=== PATIENT | female | born 1975 | race Hispanic/Latino ===

== ENCOUNTER → 2018-04-22 19:01 | Outpatient (CLI) | payer OTHER, SELFPAY ==
--- NOTE | 2018-04-22 19:13 | DI.MRI.S_ITS ---
PROCEDURE: MR LUMBAR SPINE WO CON INDICATIONS: LOW BACK PAIN TECHNIQUE: Noncontrast sagittal T1 spin echo and T2 fast echo, sagittal STIR, axial T1 and T2 fast spin echo through the lumbar spine. In cases with scoliosis, additional coronal T2 fast spin echo may be performed. COMPARISON: None. FINDINGS: Image quality: Excellent. Alignment and Curvature: There is normal bony alignment. Bone Marrow: Marrow is of normal overall signal. No acute vertebral body compression fractures. Spinal Cord: Conus medullaris terminates at the L1 level. Visualized cord demonstrates normal signal and size. Paraspinous Soft Tissues: No paravertebral masses. T12-L1: Moderate loss of disc height and disc desiccation. There is diffuse disc bulge and posterior central disc protrusion. The central canal is mildly narrowed. No foraminal stenosis. L1-L2: Mild loss of disc height and disc desiccation. There is mild posterior disc bulge. Mild bilateral facet arthropathy. The central canal is patent. No foraminal stenosis. L2-L3: Normal appearance. L3-L4: Minimal loss of disc height and mild disc desiccation. There is posterior disc bulge and disc osteophyte complex. Posterior left paramedian hyperintense annular tear. Mild bilateral facet arthropathy. The central canal is minimally narrowed. No significant foraminal stenosis. L4-L5: Preserved disc height and mild disc desiccation. There is posterior disc bulge and posterior central annular tear. Mild bilateral facet arthropathy. The central canal is minimally narrowed. No significant foraminal stenosis. L5-S1: Preserved disc height and moderate disc desiccation. There is a large posterior disc bulge and posterior central annular tear. Mild bilateral facet arthropathy. The central canal is minimally narrowed. No significant foraminal stenosis. IMPRESSION: 1. Multilevel degenerative disc disease and facet arthropathy as described. 2. Mild central canal stenosis at T12-L1. 3. No foraminal stenosis. Dictated by: Jeanne Romero M.D. on 04/23/2018 at 9:30 Approved by: Jeanne Romero M.D. on 04/23/2018 at 9:39
== END ==
DX: M51.36 Other intervertebral disc degeneration, lumbar region (principal); M51.37 Other intervertebral disc degeneration, lumbosacral region; M48.05 Spinal stenosis, thoracolumbar region; M54.5 Low back pain
CPT/HCPCS: 72148

== ENCOUNTER → 2018-11-11 07:51 | Outpatient (CLI) | payer OTHER, SELFPAY | PROVIDERS: Visit Provider Psychiatry & Neurology Neurology | DX: R20.2 Paresthesia of skin (principal); R32 Unspecified urinary incontinence; Z53.9 Procedure and treatment not carried out, unspecified reason ==

== ENCOUNTER → 2018-11-16 07:42 | Outpatient (CLI) | payer OTHER, SELFPAY ==
--- NOTE | 2018-11-16 | DI.MRI.S_ITS ---
PROCEDURE: MR THORACIC SPINE WO CON INDICATIONS: Paresthesia of skin TECHNIQUE: Noncontrast sagittal T1 spine echo and T2 fast spin echo, sagittal STIR, axial T1 and T2 fast spin echo through the thoracic spine. COMPARISON: None. FINDINGS: Image quality: Excellent. Alignment and Curvature: There is normal bony alignment. Bone Marrow: Marrow is of normal overall signal. No acute vertebral body compression fractures. Spinal Cord: Visualized spinal cord is normal in size and signal. Paraspinous Soft Tissues: No paravertebral masses. Miscellaneous: Mild multilevel degenerative changes are noted. Large right central T10-T11 disc protrusion is noted. This protrusion abuts and flattens the anterior right aspect of the thoracic spinal cord. Mild to moderate narrowing of the central canal secondary to T10-T11 disc protrusion. Small central T5-T6 and T6-T7 disc protrusions are noted which do not cause significant central canal narrowing or neural impingement. No neural foraminal narrowing. IMPRESSION: 1. Mild multilevel degenerative disc disease. 2. T10-T11 right central disc protrusion which abuts and flattens the anterior aspect of the thoracic spinal cord. Please correlate with clinical data. 3. [id number] T10-T11 central canal narrowing. 4. No neural foraminal narrowing. Dictated by: Nelly Hood MD, PhD on 11/16/2018 at 9:37 Approved by: Nelly Hood MD, PhD on 11/16/2018 at 9:39
--- NOTE | 2018-11-16 | DI.MRI.S_ITS ---
PROCEDURE: MR CERVICAL SPINE WO CON INDICATIONS: Paresthesia of skin TECHNIQUE: Noncontrast sagittal T1 spin echo and T2 fast spin echo, sagittal STIR, foraminal oblique sagittal T2 fast spin echo, and axial gradient echo or T2 fast spin echo through the cervical spine. COMPARISON: [facility], MR, MR THORACIC SPINE WO CON, 11/16/2018, 8:32. FINDINGS: Image quality: Excellent. Alignment and Curvature: There is normal bony alignment. Bone Marrow: Marrow demonstrates normal overall signal. Spinal Cord: Visualized spinal cord has normal size and signal. No cerebellar tonsillar herniation. Paraspinous Soft Tissues: No paravertebral masses. Prevertebral soft tissues are normal in thickness. C2-C3: Mild loss of disc height. Preserved disc desiccation. There is mild posterior disc bulge. The central canal is patent. Mild bilateral foraminal stenosis. C3-C4: Preserved disc height and disc signal. There is mild posterior disc bulge. Uncovertebral hypertrophy bilaterally, left greater than right. Mild bilateral facet arthropathy. The central canal is mildly narrowed. Moderate left foraminal stenosis and mild right foraminal stenosis. C4-C5: Preserved disc height and disc signal. There is mild posterior disc bulge. Uncovertebral hypertrophy bilaterally. The central canal is mildly narrowed. Moderate foraminal stenosis bilaterally. C5-C6: Preserved disc height and disc signal. There is mild posterior disc bulge. Uncovertebral hypertrophy bilaterally. Mild bilateral facet arthropathy. The central canal is mildly narrowed. Mild foraminal stenosis bilaterally. C6-C7: Preserved disc height and disc signal. There is circumferential disc bulge. Mild bilateral facet arthropathy. The central canal is patent. No foraminal stenosis. C7-T1: Normal appearance. IMPRESSION: 1. Multilevel degenerative disc disease and facet arthropathy as described. 2. Mild central canal stenosis at C3-C4, C4-C5 and C5-C6. 3. Multilevel foraminal stenosis as described, moderate at C3-C4 on the left and C4-C5 bilaterally, mild at C3-C4 on the right and C5-C6 bilaterally. Dictated by: Jeanne Romero M.D. on 11/16/2018 at 9:40 Approved by: Jeanne Romero M.D. on 11/16/2018 at 17:49
== END ==
PROVIDERS: Visit Provider Psychiatry & Neurology Neurology
DX: R20.2 Paresthesia of skin (principal); M51.34 Other intervertebral disc degeneration, thoracic region; M51.24 Other intervertebral disc displacement, thoracic region; M50.31 Other cervical disc degeneration, high cervical region; M47.812 Spondylosis without myelopathy or radiculopathy, cervical region; M48.04 Spinal stenosis, thoracic region; M48.02 Spinal stenosis, cervical region
CPT/HCPCS: 72141; 72146